=== PATIENT | female | born 1990 | race African-American/Black ===

== ENCOUNTER 2021-07-01 21:04 | Emergency (ER) | payer MEDICAID ==
[~2021-07-01] VITALS: Ht 160 cm; Wt 100.0 kg
[~2021-07-01 21:04] MED LIST: FLEXERIL 1010 MG/TAB PO; LIDODERM 5% PATC1 EA TP; MEDROL 4MG DOSPA4 MG PO; NORCO 325 MG-51 TAB PO
[2021-07-01 21:52] VITALS: BP 119/80; PULSE 93; TEMP 97.5
[2021-07-02 00:04] LABS: BASO % 0.2 % (0.0-2.0); EOS # 0.2 K/mm3 (0.0-0.7); EOS % 2.3 % (0.0-4.0); GRAN # 6.7 K/mm3 (1.4-6.5); GRAN % 65.9 % (42.2-75.2); HEMOGLOBIN 11.1 g/dl (12.5-16.0); LYMPH # 2.5 K/mm3 (1.2-3.4); LYMPH % 24.7 % (20.0-51.0); MEAN CELL VOLUME 91 fl (80.0-100.0); MEAN CORPUSCULAR HEMOGLOBIN 31 pg (27-31); MEAN CORPUSCULAR HGB CONC 34 g/dl (33.0-37.0); MEAN PLATELET VOLUME 9.5 fl (7.4-10.4); MONO # 0.7 K/mm3 (0.1-0.6); MONO % 6.6 % (1.7-9.3); PLATELET COUNT 297 K/mm3 (130-400); RED BLOOD COUNT 3.59 M/mm3 (4.10-5.30); REDCELL DISTRIBUTION WIDTH-CV 12.7 % (11.5-14.5)
[2021-07-02 00:05] LABS: HEMATOCRIT 32.7 % (37.0-47.0)
== END 2021-07-01 23:52 | disposition home or self-care (01) ==
LOC: COL.ER 21:04
PROVIDERS: Personal Emergency Response Attendant
DX: O20.0 Threatened abortion (principal); O99.331 Smoking (tobacco) complicating pregnancy, first trimester; F17.200 Nicotine dependence, unspecified, uncomplicated; Z3A.01 Less than 8 weeks gestation of pregnancy

== ENCOUNTER 2022-01-05 19:09 | Outpatient (CLI) | payer MEDICAID ==
[~2022-01-05] VITALS: Ht 160 cm; Wt 120.5 kg
[2022-01-05 19:40] VITALS: BP 187/121; PULSE 74; TEMP 98.4
[2022-01-05 20:00] VITALS: BP 188/125
[2022-01-05 20:30] VITALS: BP 191/113; PULSE 71
[2022-01-05 20:36] LABS: COLLECTION METHOD CATHETER
[2022-01-05 20:38] LABS: HEMOGLOBIN 11.5 g/dl (12.5-16.0); MEAN CELL VOLUME 89 fl (80.0-100.0); MEAN CORPUSCULAR HEMOGLOBIN 31 pg (27-31); MEAN CORPUSCULAR HGB CONC 35 g/dl (33.0-37.0); MEAN PLATELET VOLUME 10.9 fl (7.4-10.4); PLATELET COUNT 157 K/mm3 (130-400); RED BLOOD COUNT 3.66 M/mm3 (4.10-5.30); REDCELL DISTRIBUTION WIDTH-CV 14.2 % (11.5-14.5)
[2022-01-05 20:39] LABS: HEMATOCRIT 32.6 % (37.0-47.0)
[2022-01-05 20:51] LABS: MUCOUS Present (NOT PRESENT); PH 5 (5-8); URINE APPEARANCE Cloudy (CLEAR/HAZY); URINE BACTERIA Rare /hpf (NONE SEEN); URINE BILIRUBIN Negative (NEGATIVE); URINE BLOOD 2+ (NEGATIVE); URINE COLOR Amber (YELLOW); URINE GLUCOSE Negative (NEGATIVE); URINE KETONE Negative (NEGATIVE); URINE LEUKOCYTE ESTERASE Negative (NEGATIVE); URINE NITRATE Negative (NEGATIVE); URINE PROTEIN(semi-quant) 3+ (NEGATIVE); URINE UROBILINOGEN Negative (NEGATIVE)
[2022-01-05 21:03] LABS: ALBUMIN 2.9 gm/dL (3.5-5.0); BILIRUBIN,TOTAL 0.5 mg/dL (0.2-1.2); CALCIUM 9.6 mg/dL (8.4-10.2); CREATININE, serum 1.74 mg/dL (0.57-1.11); POTASSIUM 4.1 mmol/L (3.5-4.5); TOTAL PROTEIN 7.1 gm/dL (6.2-8.1)
[2022-01-05 21:30] VITALS: BP 184/114; PULSE 78; TEMP 98.6
--- NOTE | 2022-01-05 21:41 | NUR ---
1919 PT ARRIVED TO L&D, C/O ROBISON AND BLURRED VISION SINCE LAST NIGHT. TOOK TYLENOL 2 EXTRA STRENGTH AT 1700 TODAY. IT DID NOT HELP. TEMP 98.4, RESP 16, HR 74, BP187/121, AND 188/125. 1953 DR LUIS NOTIFIED, ORDERS FOR IV, LR BOLUSE OF 250 CC, CBC, CMP, CATH UA, LABETALOL 20 MG IVP NOW. PT DENIED SWELLING, BLEEDING, POSSIBLE LEAKING FLUID. AMNITRACE WAS DONE AND IT WAS NEG. HAD DIARRHEA X 1 TODAY AND SHE DID NOT REALIZE SHE HAD IT ON HER CLOTHES. 2014 IV STARTED IN RIGHT HAND 28 G 2015 LABETALOL 20 MG IVP 2021 F/C PLACED WITH UA SENT TO LAB 2039 LABETALOL 40 MG IVP 2057 BETAMETHASONE 12 MG IM RGM 2107 HYDRALAZINE 10 MG IVP 2121 MAG SULFATE 4 GM BOLUS 2136 MAG SULFATE 1 GM/ HR 2134 SENCOND IV SITE STARTED IN RIGHT HAND 18 G.
[2022-01-05 22:00] VITALS: BP 184/114; PULSE 78
[2022-01-05 22:00] LABS: TRICYCLIC ANTIDEPRESS URINE NEGATIVE
--- NOTE | 2022-01-05 22:17 | NUR ---
2204 PROCARDIA 20 MG PO GIVEN OXYGEN DC'D PER DR LUIS
[2022-01-05 22:55] VITALS: BP 159/100; PULSE 87; TEMP 97.7
--- NOTE | 2022-01-05 23:12 | NUR ---
[facility] CREW HERE TO PICKUP PT FOR TRANSFER TO [facility]. REPORT GIVEN, PT AMB TO THE GURNEY AND SAFTEY STRAPS PLACED ON HER. PT LEFT UNIT AT 2312 IN STABLE CONDITION.
== END 2022-01-05 23:15 ==
LOC: LDRO 19:09
PROVIDERS: Obstetrics & Gynecology
DX: O42.913 Preterm premature rupture of membranes, unspecified as to length of time between rupture and onset of labor, third trimester (principal); O26.893 Other specified pregnancy related conditions, third trimester; R51.9 Headache, unspecified; H53.8 Other visual disturbances; Z3A.36 36 weeks gestation of pregnancy
CPT/HCPCS: J0360; J0702; J3475; J7120